=== PATIENT | female | born 2000 | race Caucasian/White ===

== ENCOUNTER → 2019-09-11 09:59 | Outpatient (BNVA) | payer MEDICAID, SELFPAY | PROVIDERS: Family Provider Nurse Practitioner Family; PCP Nurse Practitioner Family; Visit Provider Nurse Practitioner Family | DX: R07.89 Other chest pain (principal) | CPT/HCPCS: 71046 ==

== ENCOUNTER → 2020-01-22 15:15 | Outpatient (BNVA) | payer MEDICAID, SELFPAY | PROVIDERS: Family Provider Nurse Practitioner Family; PCP Nurse Practitioner Family; Visit Provider Emergency Medicine | DX: J02.9 Acute pharyngitis, unspecified (principal); R68.89 Other general symptoms and signs | CPT/HCPCS: 87071; 87400; 87635; 87880 ==

== ENCOUNTER → 2021-08-20 12:44 | Outpatient (BNVA) | payer OTHER, MEDICAID, SELFPAY | PROVIDERS: Family Provider Nurse Practitioner Family; Visit Provider Counselor Professional | DX: F43.12 Post-traumatic stress disorder, chronic (principal); F33.2 Major depressive disorder, recurrent severe without psychotic features; F41.9 Anxiety disorder, unspecified | CPT/HCPCS: 90791 ==

== ENCOUNTER → 2022-02-06 16:17 | Outpatient (BNVA) | payer OTHER, MEDICAID, SELFPAY | PROVIDERS: Visit Provider Psychiatry & Neurology Psychiatry | DX: Z79.899 Other long term (current) drug therapy (principal) | CPT/HCPCS: 80053; 80061; 84443; 85025 ==

== ENCOUNTER → 2022-07-25 13:29 | Outpatient (BNVA) | payer MEDICAID, SELFPAY | PROVIDERS: Visit Provider Emergency Medicine | DX: M25.462 Effusion, left knee (principal) | CPT/HCPCS: 73562 ==

== ENCOUNTER → 2023-12-25 12:03 | Outpatient (BNVA) | payer MEDICAID, SELFPAY | PROVIDERS: Visit Provider Emergency Medicine | DX: N89.8 Other specified noninflammatory disorders of vagina (principal) | CPT/HCPCS: 81000; 87086; 87491; 87591; 87661 ==

== ENCOUNTER → 2023-12-26 12:03 | Outpatient (BNVA) | payer MEDICAID, SELFPAY | PROVIDERS: Visit Provider Emergency Medicine | DX: N89.8 Other specified noninflammatory disorders of vagina (principal) | CPT/HCPCS: 87491; 87591 ==

== ENCOUNTER 2024-03-10 19:15 | Emergency (ER) | payer MEDICAID, SELFPAY ==
[2024-03-10 19:15] VITALS: BP 114/71; PULSE 81; RESP 18; TEMP 36.8; BMI 30.7
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
[2024-03-10 19:34] VITALS: BP 159/76; PULSE 80; RESP 18; O2SAT 94
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
[2024-03-10] MEDS: ketorolac 30 mg/mL INJ IVP (21:39)
[2024-03-10] MEDS: orphenadrine 30 mg/mL Inj 2 mL 60 MG IVP (21:39)
[2024-03-10] MEDS: tetanus-dipt-pertussis 0.5 mL SDV IM (21:44)
[2024-03-10 21:48] VITALS: BP 140/92; PULSE 90; RESP 16; O2SAT 96
== END 2024-03-10 22:00 | disposition home or self-care (01) ==
PROVIDERS: Emergency Provider Emergency Medicine
DX: S39.92XA Unspecified injury of lower back, initial encounter (principal); S09.90XA Unspecified injury of head, initial encounter; V89.2XXA Person injured in unspecified motor-vehicle accident, traffic, initial encounter
CPT/HCPCS: 70450; 72125; 72192; 90471; 90715; 96374; 96375; 99285; J1885; J2360